=== PATIENT | female | born 2005 | race Caucasian/White ===

== ENCOUNTER 2024-09-10 10:40 | Emergency (ER) | payer OTHER ==
[~2024-09-10] VITALS: Ht 162.6 cm; Wt 55.5 kg
[2024-09-10] MEDS ORDERED: AMOXICILLIN500 M1 PO (11:46)
[2024-09-10 11:54] VITALS: BP 110/73
== END 2024-09-10 11:54 | disposition home or self-care (01) ==
LOC: ED 10:40
DX: J30.9 Allergic rhinitis, unspecified (principal)
CPT/HCPCS: 99283